=== PATIENT | male | born 1955 | race African-American/Black ===

== ENCOUNTER 2018-10-08 05:15 | Inpatient (IN) | payer BC, OTHER ==
[2018-10-08] MEDS: LACTATED RINGER'S 1,000 ML IV (06:05)
[2018-10-08] MEDS ORDERED: CA CHLORIDE (GM) 10% 10 ML INJ (06:58)
[2018-10-08] MEDS ORDERED: SEVOFLURANE 15 MIN (07:00)
[2018-10-08] MEDS ORDERED: PROPOFOL 20 ML (07:04)
[2018-10-08] MEDS ORDERED: GLYCOPYRROLATE 0.4 MG INJ ×2 (07:04→08:51)
[2018-10-08] MEDS ORDERED: SUCCINYLCHOLINE CHLORIDE 100 MG/5 ML SYG IV (07:04)
[2018-10-08] MEDS ORDERED: LIDOCAINE 2% (SDV) 5 ML INJ (07:04)
[2018-10-08] MEDS ORDERED: ROCURONIUM 50 MG INJ ×3 (07:04→08:50)
[2018-10-08] MEDS ORDERED: MEPERIDINE 100 MG INJ (07:04)
[2018-10-08] MEDS ORDERED: NEOSTIGMINE 3 MG/3 ML SYRINGE ×2 (07:04→08:51)
[2018-10-08] MEDS ORDERED: HYDROmorphONE 0.5 MG/0.5 ML SYG IV (07:30)
[2018-10-08] MEDS ORDERED: DIPHENHYDRAMINE 25 MG CAP PO (07:30)
[2018-10-08] MEDS ORDERED: CEFAZOLIN 1 GM/50 ML (PMX) 50 ML IVPB (07:30)
[2018-10-08] MEDS ORDERED: NALOXONE (0.4 MG/ML) INJ IV (07:30)
[2018-10-08] MEDS ORDERED: DIPHENHYDRAMINE 50 MG INJ IV ×2 (07:30→11:00)
[2018-10-08] MEDS ORDERED: BISACODYL 10 MG SUPP PR (07:30)
[2018-10-08] MEDS: CEFAZOLIN 2 GM/50 ML (PMX) 50 ML IVPB (07:35)
[2018-10-08] MEDS ORDERED: GELATIN SIZE 100 SPONGE (07:47)
[2018-10-08] MEDS ORDERED: THROMBIN 5000 UNIT VIAL (07:47)
[2018-10-08] MEDS: GELATIN SIZE 100 SPONGE (08:33)
[2018-10-08] MEDS: BUPIVACAINE 0.25%/EPI (SDV) 30 ML INJ (08:33)
[2018-10-08] MEDS: CEFAZOLIN 1 GM INJ (08:33)
[2018-10-08] MEDS: HEPARIN 1000 UNITS/ML 10 ML INJ (08:34)
[2018-10-08] MEDS: THROMBIN 5000 UNIT VIAL (08:34)
[2018-10-08] MEDS: DOCUSATE SODIUM 100 MG CAP PO ×2 (09:00→20:40)
[2018-10-08] MEDS ORDERED: HYDROmorphONE 1 MG/5 ML IV SYRINGE IV (11:00)
[2018-10-08] MEDS ORDERED: ONDANSETRON 4 MG INJ IV (11:00)
[2018-10-08] MEDS ORDERED: OXYCODONE/ACETAMINOPHEN (5/325) TAB PO ×2 (11:00)
[2018-10-08] MEDS ORDERED: FENTAnyl 50 MCG/ML VIAL IV (11:00)
[2018-10-08] MEDS ORDERED: EPHEDrine 25 MG/5 ML SYG IV (11:00)
[2018-10-08] MEDS ORDERED: MIDAZOLAM 1 MG/ML 2 ML INJ IV (11:00)
[2018-10-08] MEDS ORDERED: LABETALOL HCL 20MG INJ IV (11:00)
[2018-10-08] MEDS ORDERED: METOCLOPRAMIDE 10 MG INJ IV (11:00)
[2018-10-08] MEDS ORDERED: hydrALAzine 20 MG INJ IV (11:00)
[2018-10-08] MEDS ORDERED: ONDANSETRON 4 MG INJ (11:27)
[2018-10-08] MEDS: HYDROmorphONE 1 MG/5 ML IV SYRINGE IV ×2 (12:31→12:50)
[2018-10-08] MEDS: FENTAnyl 50 MCG/ML VIAL IV ×2 (12:31→12:51)
[2018-10-08] MEDS: MEPERIDINE 25 MG INJ IV (12:51)
[2018-10-08] MEDS: HYDROmorphONE 0.2 MG/ML PCA IV (13:50)
[2018-10-08] MEDS: CEFAZOLIN 1 GM/50 ML (PMX) 50 ML IVPB ×2 (15:54→23:30)
[2018-10-08] MEDS: D5W-0.45 NACL + KCL 20 MEQ 1,000 ML IV ×2 (15:55→16:07)
[2018-10-08] MEDS: ONDANSETRON 4 MG INJ IV (19:23)
[2018-10-08] MEDS: TAMSULOSIN (SR) 0.4 MG CAP PO (20:40)
[2018-10-09] MEDS: HYDROmorphONE 0.2 MG/ML PCA IV ×2 (02:24→15:09)
[2018-10-09] MEDS: D5W-0.45 NACL + KCL 20 MEQ 1,000 ML IV ×3 (03:20→22:17)
[2018-10-09] MEDS: PANTOPRAZOLE (EC) 40 MG TAB PO (05:32)
[2018-10-09 05:33] LABS: ADD MAN DIFF? NO
[2018-10-09] MEDS: CEPASTAT LOZENGE MT (05:39)
[2018-10-09] MEDS: CYCLOBENZAPRINE 10 MG TAB PO ×2 (05:39→18:54)
[2018-10-09 05:40] LABS: BASOPHILS % 0.2 % (0.0-2.0); EOSINOPHILS % 0.1 % (0.0-7.0); HEMATOCRIT 31.4 % (42.0-52.0); HEMOGLOBIN 10.6 g/dl (14.0-18.0); LYMPHOCYTES # 1.1 10^3/ul (0.8-2.9); LYMPHOCYTES % 9.2 % (15.0-51.0); MEAN CORPUSCULAR HEMOGLOBIN 34.8 pg (29.0-33.0); MEAN CORPUSCULAR HGB CONC 33.8 g/dl (32.0-37.0); MEAN PLATELET VOLUME 10.5 fl (7.4-10.4); MONOCYTE # 0.9 10^3/ul (0.3-0.9); MONOCYTES % 8.2 % (0.0-11.0); NEUTROPHIL # 9.3 10^3/ul (1.6-7.5); NEUTROPHILS % 81.4 % (39.0-77.0); PLATELET COUNT 166 10^3/UL (140-415); RED BLOOD COUNT 3.05 10^6/ul (4.70-6.10); RED CELL DISTRIBUTION WIDTH 12.8 % (11.5-14.5)
[2018-10-09 05:40] LABS: WHITE BLOOD COUNT 11.4 10^3/ul (4.8-10.8)
[2018-10-09 06:15] LABS: ANION GAP 3 (5-13); BLOOD UREA NITROGEN 7 mg/dl (7-20); CALCIUM 7.9 mg/dl (8.4-10.2); CARBON DIOXIDE 29 mmol/L (21-31); CHLORIDE 102 mmol/L (97-110); CREATININE 0.76 mg/dl (0.61-1.24); Estimated GFR > 60 mL/min (>60); GLUCOSE 133 mg/dl (70-220); MAGNESIUM 1.1 mg/dl (1.7-2.5); POTASSIUM 4.2 mmol/L (3.5-5.1); SODIUM 134 mmol/L (135-144)
[2018-10-09] MEDS: CEFAZOLIN 1 GM/50 ML (PMX) 50 ML IVPB (07:14)
[2018-10-09] MEDS ORDERED: AMLODIPINE 10 MG TAB PO (09:00)
[2018-10-09] MEDS: DOCUSATE SODIUM 100 MG CAP PO ×2 (09:13→21:14)
[2018-10-09] MEDS: LISINOPRIL 20 MG TAB PO (09:15)
[2018-10-09] MEDS: ONDANSETRON 4 MG INJ IV (10:16)
[2018-10-09] MEDS: MAGNESIUM SULFATE 3 GM in DEXTROSE 5% 100 ML IVPB (10:31)
[2018-10-09] MEDS: AMLODIPINE 5 MG TAB PO (13:59)
[2018-10-09] MEDS: TAMSULOSIN (SR) 0.4 MG CAP PO (21:15)
[2018-10-10] MEDS: AL HYDROX/MG HYDROX/SIMETH 30 ML CUP PO (02:09)
[2018-10-10] MEDS: ACETAMINOPHEN 325 MG TAB PO ×2 (02:21→06:23)
[2018-10-10] MEDS: PANTOPRAZOLE (EC) 40 MG TAB PO (05:17)
[2018-10-10] MEDS: D5W-0.45 NACL + KCL 20 MEQ 1,000 ML IV (05:23)
[2018-10-10 05:25] LABS: ADD MAN DIFF? NO
[2018-10-10 05:33] LABS: WHITE BLOOD COUNT 15.3 10^3/ul (4.8-10.8)
[2018-10-10 05:33] LABS: ABNORMAL IP MESSAGE 1; BASOPHILS % 0.2 % (0.0-2.0); EOSINOPHILS % 0.1 % (0.0-7.0); HEMATOCRIT 29.9 % (42.0-52.0); HEMOGLOBIN 10.1 g/dl (14.0-18.0); LYMPHOCYTES # 1.5 10^3/ul (0.8-2.9); LYMPHOCYTES % 9.8 % (15.0-51.0); MEAN CORPUSCULAR HEMOGLOBIN 34.7 pg (29.0-33.0); MEAN CORPUSCULAR HGB CONC 33.8 g/dl (32.0-37.0); MEAN CORPUSCULAR VOLUME 102.7 fl (82.0-101.0); MEAN PLATELET VOLUME 10.6 fl (7.4-10.4); MONOCYTE # 1.6 10^3/ul (0.3-0.9); MONOCYTES % 10.4 % (0.0-11.0); NEUTROPHIL # 11.9 10^3/ul (1.6-7.5); NEUTROPHILS % 78.3 % (39.0-77.0); PLATELET COUNT 142 10^3/UL (140-415); POSITIVE DIFF @See below; RED BLOOD COUNT 2.91 10^6/ul (4.70-6.10); RED CELL DISTRIBUTION WIDTH 12.7 % (11.5-14.5)
[2018-10-10 05:56] LABS: ALANINE AMINOTRANSFERASE 44 IU/L (13-69); ALBUMIN 2.7 g/dl (3.3-4.9); ALKALINE PHOSPHATASE 48 IU/L (42-121); ANION GAP 3 (5-13); ASPARTATE AMINO TRANSFERASE 86 IU/L (15-46); BILIRUBIN,INDIRECT 0.8 mg/dl (0-1.1); BILIRUBIN,TOTAL 0.8 mg/dl (0.2-1.3); BLOOD UREA NITROGEN 4 mg/dl (7-20); CALCIUM 7.8 mg/dl (8.4-10.2); CARBON DIOXIDE 29 mmol/L (21-31); CHLORIDE 100 mmol/L (97-110); CREATININE 0.77 mg/dl (0.61-1.24); Estimated GFR > 60 mL/min (>60); GLUCOSE 131 mg/dl (70-220); POTASSIUM 3.9 mmol/L (3.5-5.1); SODIUM 132 mmol/L (135-144); TOTAL PROTEIN 5.4 g/dl (6.1-8.1)
[2018-10-10 06:25] LABS: MAGNESIUM 1.8 mg/dl (1.7-2.5)
[2018-10-10] MEDS: HYDROmorphONE 0.2 MG/ML PCA IV (06:32)
[2018-10-10] MEDS ORDERED: HYDROCODONE/APAP (10/325) TAB PO (09:30)
[2018-10-10] MEDS: LISINOPRIL 20 MG TAB PO (09:36)
[2018-10-10] MEDS: AMLODIPINE 5 MG TAB PO (09:36)
[2018-10-10] MEDS: DOCUSATE SODIUM 100 MG CAP PO ×2 (09:37→21:06)
[2018-10-10] MEDS: HYDROCODONE/APAP (10/325) TAB PO ×3 (09:37→22:30)
[2018-10-10 10:31] LABS: ADD UMIC YES; UR ASCORBIC ACID NEGATIVE (NEGATIVE); UR BACTERIA FEW /HPF (NONE SEEN); UR BILIRUBIN (Dip) NEGATIVE (NEGATIVE); UR BLOOD (Dip) 2+ mg/dL (NEGATIVE); UR CLARITY CLEAR (CLEAR); UR COLOR YELLOW (YELLOW); UR GLUCOSE (Dip) NEGATIVE (NEGATIVE); UR KETONES (Dip) NEGATIVE (NEGATIVE); UR LEUKOCYTE ESTERASE (Dip) NEGATIVE Leu/ul (NEGATIVE); UR NITRITE (Dip) NEGATIVE (NEGATIVE); UR RBC 7 /HPF (0-5); UR SPECIFIC GRAVITY (Dip) 1.005 (1.003-1.030); UR TOTAL PROTEIN (Dip) NEGATIVE (NEGATIVE); UR UROBILINOGEN (Dip) 1+ mg/dL (NEGATIVE); UR WBC 4 /HPF (0-5)
[2018-10-10] MEDS: TAMSULOSIN (SR) 0.4 MG CAP PO ×2 (14:09→20:33)
[2018-10-10] MEDS: CYCLOBENZAPRINE 10 MG TAB PO (21:08)
[2018-10-11] MEDS: HYDROCODONE/APAP (10/325) TAB PO ×3 (02:23→10:18)
[2018-10-11] MEDS: PANTOPRAZOLE (EC) 40 MG TAB PO (06:22)
[2018-10-11] MEDS: DOCUSATE SODIUM 100 MG CAP PO (08:41)
[2018-10-11] MEDS: LISINOPRIL 20 MG TAB PO (08:42)
[2018-10-11] MEDS: AMLODIPINE 5 MG TAB PO (08:43)
[2018-10-11] MEDS: CYCLOBENZAPRINE 10 MG TAB PO (08:50)
== END 2018-10-11 12:30 | disposition home or self-care (01) | DRG 455 ==
LOC: REC 05:15 → MS1 14:16
PROC: 0SG00AJ Fusion of Lumbar Vertebral Joint with Interbody Fusion Device, Posterior Approach, Anterior Column, Open Approach (ICD-10-PCS; principal; 2018-10-08 07:00)
PROC: 0SG0071 Fusion of Lumbar Vertebral Joint with Autologous Tissue Substitute, Posterior Approach, Posterior Column, Open Approach (ICD-10-PCS; 2018-10-08 07:00)
PROC: 0SG30AJ Fusion of Lumbosacral Joint with Interbody Fusion Device, Posterior Approach, Anterior Column, Open Approach (ICD-10-PCS; 2018-10-08 07:00)
PROC: 0SG3071 Fusion of Lumbosacral Joint with Autologous Tissue Substitute, Posterior Approach, Posterior Column, Open Approach (ICD-10-PCS; 2018-10-08 07:00)
PROC: 0ST20ZZ Resection of Lumbar Vertebral Disc, Open Approach (ICD-10-PCS; 2018-10-08 07:00)
PROC: 0ST40ZZ Resection of Lumbosacral Disc, Open Approach (ICD-10-PCS; 2018-10-08 07:00)
PROC: 4A11X4G Monitoring of Peripheral Nervous Electrical Activity, Intraoperative, External Approach (ICD-10-PCS; 2018-10-08 07:00)
DX: M51.16 Intervertebral disc disorders with radiculopathy, lumbar region (principal); M48.061 Spinal stenosis, lumbar region without neurogenic claudication; M51.17 Intervertebral disc disorders with radiculopathy, lumbosacral region; M48.07 Spinal stenosis, lumbosacral region; I10 Essential (primary) hypertension; B18.2 Chronic viral hepatitis C; K21.9 Gastro-esophageal reflux disease without esophagitis; M16.0 Bilateral primary osteoarthritis of hip; N40.1 Benign prostatic hyperplasia with lower urinary tract symptoms; E83.42 Hypomagnesemia
CPT/HCPCS: 71045; 72100; 80048; 80053; 81001; 83735; 85025; 86900; 86901; 86999; 87086; 88304; 97110; 97116; 97163; 97530